=== PATIENT | male | born 1995 | race Two or more races ===

== ENCOUNTER 2024-01-14 17:51 | Emergency (ER) | payer OTHER ==
[~2024-01-14] VITALS: Ht 198.1 cm; Wt 95.3 kg
[2024-01-14] MEDS ORDERED: KETOROLAC TROMETHAMINE 30 MG VIAL IM STA (21:44)
[2024-01-14] MEDS ORDERED: KETOROLAC TROMETHAMINE 30 MG VIAL ONE (21:47)
== END 2024-01-14 21:56 | disposition home or self-care (01) ==
LOC: ER 17:52
DX: R51.9 Headache, unspecified (principal)